=== PATIENT | male | born 1980 | race Caucasian/White ===

== ENCOUNTER 2016-06-11 15:00 | Inpatient (IN) | payer BC ==
[2016-06-11 17:17] VITALS: BMI 37.9
--- NOTE | 2016-06-11 20:10 | HP ---
COWS - Scale Resting Pulse: 1= [place] 81-100 Sweatin= Chills/Flushing Restless Observation: 3= Extraneous Movement Pupil Size: 0= Normal to Room Light Bone or Joint Aches: 2= Severe Diffuse Aches Runny Nose/ Eye Tearin= Runny Nose/Eyes GI Upset > 30mins: 3= Vomiting/Diarrhea Tremor Observation: 2= Slight Tremor Visible Yawning Observation: 0= None Anxiety or Irritability: 2=Irritable/Anxious Goose Flesh Skin: 0=Smooth Skin COWS Score: 16 Admission [facility] Chief Complaint: WITHDRAWAL SX Allergies/Adverse Reactions: Allergies Allergy/AdvReac Type Severity Reaction Status Date / Time No Known Allergies Allergy Verified 06/11/16 17:37 History of Present Illness: 35 YEARS OLD MALE WITH LONG HISTORY OF OPIATE NICOTINE MARIJUANA DEPENDENCE HAS HIV IS ADMITTED TO DETOX Exam Limitations: No Limitations - Ebola screening Have you traveled outside of the country in the last 21 days: No Have you had contact with anyone from an Ebola affected area: No Have you been sick,other than usual withdrawal symptoms: No Do you have a fever: No - Review of Systems Constitutional: Chills, Changes in sleep, Weight Stable EENT: reports: No Symptoms Reported Respiratory: reports: No Symptoms reported Cardiac: reports: No Symptoms Reported GI: reports: Diarrhea, Nausea, Poor Fluid Intake, Vomiting, Indigestion, Abdominal cramping : reports: No Symptoms Reported, Lesions Musculoskeletal: reports: Joint Pain, Muscle Pain, Neck Pain Integumentary: reports: Change in Color (RIGHT INNER ELBOW) Neuro: reports: Tremors Endocrine: reports: No Symptoms Reported Hematology: reports: No Symptoms Reported Psychiatric: reports: Judgement Intact, Mood/Affect Appropiate, Orientated x3 Other Systems: Reviewed and Negative Patient History - Patient Medical History Hx Anemia: No Hx Asthma: No Hx Chronic Obstructive Pulmonary Disease (COPD): No Hx Cancer: No Hx Cardiac Disorders: No Hx Congestive Heart Failure: No Hx Hypertension: No Hx Hypercholesterolemia: No Hx Pacemaker: No HX Cerebrovascular Accident: No Hx Seizures: No Hx Dementia: No Hx Diabetes: Yes (OWX=[id number]) Hx Gastrointestinal Disorders: No Hx Liver Disease: No Hx Genitourinary Disorders: No Hx Sexually Transmitted Disorders: No Hx Renal Disease (ESRD): No Hx Thyroid Disease: No Hx Human Immunodeficiency Virus (HIV): Yes Hx Hepatitis C: Yes Hx Depression: Yes Hx Suicide Attempt: No Hx Bipolar Disorder: No Hx Schizophrenia: No - Patient Surgical History Past Surgical History: No - PPD History Previous Implant?: Yes Documented Results: Negative w/o proof Implanted On Prior [facility] Admission?: No PPD to be Administered?: Yes - Smoking Cessation Smoking history: Current every day smoker Have you smoked in the past 12 months: No Aproximately how many cigarettes per day: 5 Cigars Per Day: 0 Hx Chewing Tobacco Use: No Initiated information on smoking cessation: Yes 'Breaking Loose' booklet given: 06/11/16 - Substance & Tx. History Hx Alcohol Use: No Hx Substance Use: Yes Substance Use Type: Marijuana, Opiates Hx Substance Use Treatment: Yes - Substances Abused Heroin Route: Injection Frequency: Daily Amount used: 10 bags Age of first use: 12 Date of Last Use: 06/11/16 Marijuana/Hashish Route: Smoking Frequency: Daily Amount used: 2 bags Age of first use: 12 Date of Last Use: 06/10/16 Family Disease History - Family Disease History Family Disease History: Heart Disease: Grandparent Admission Physical Exam S - Vital Signs Vital Signs: Vital Signs - 24 hr 06/11/16 17:16 Temperature 96.8 F L Pulse Rate 83 Respiratory 20 Rate Blood Pressure 120/86 - Physical General Appearance: Yes: Appropriately Dressed, Mild Distress, Obese, Tremorous , Irritable, Sweating, Anxious HEENTM: Yes: Hearing grossly Normal, Normal ENT Inspection, Normocephalic, Normal Voice Respiratory: Yes: Chest Non-Tender, Lungs Clear, Normal Breath Sounds, No Respiratory Distress, No Accessory Muscle Use Neck: Yes: Supple, Trachea in good position Breast: Yes: Breasts Symetrical Cardiology: Yes: Regular Rhythm, Regular Rate, S1, S2 Abdominal: Yes: Non Tender, Soft Genitourinary: Yes: Within Normal Limits Back: Yes: Normal Inspection Musculoskeletal: Yes: full range of Motion, Gait Steady, Back pain, Muscle Pain Extremities: Yes: Normal Range of Motion, Non-Tender, Tremors Neurological: Yes: Fully Oriented, Alert, Motor Strength 5/5, Normal Response, Depressed Affect Integumentary: Yes: Warm, Track [place] Lymphatic: Yes: Within Normal Limits - Diagnostic (1) Opioid dependence with withdrawal Current Visit: Yes Status: Acute (2) Cannabis dependence, uncomplicated Current Visit: Yes Status: Chronic (3) HIV (human immunodeficiency virus infection) Current Visit: Yes Status: Acute (4) Nicotine dependence Current Visit: Yes Status: Acute Qualifiers: Nicotine product type: cigarettes Substance use status: in withdrawal Qualified Code(s): F17.213 - Nicotine dependence, cigarettes, with withdrawal (5) Hepatitis C antibody test positive Current Visit: Yes Status: Resolved Comment: TREATED (6) GERD (gastroesophageal reflux disease) Current Visit: Yes Status: Acute Qualifiers: Esophagitis presence: without esophagitis Qualified Code(s): K21.9 - Gastro-esophageal reflux disease without esophagitis (7) Diabetes mellitus type II, controlled Current Visit: Yes Status: Acute Qualifiers: Diabetes mellitus complication status: without complication Diabetes mellitus adjunct faculty for medical terminology insulin use: without adjunct faculty for medical terminology use Qualified Code(s): E11.9 - Type 2 diabetes mellitus without complications Cleared for Admission [facility] - Detox or Rehab [facility] Level of Care: Medically Managed Detox Regimen/Protocol: Methadone S Breath Alcohol Content Breath Alcohol Content: 0 Urine Drug Screen - Results Urine Drug Screen Results: THC-Marijuana, OPI-Opiates
[2016-06-11] MEDS ORDERED: guaiFENesin/D-METHORPHAN HB 10 ML UNIT-DOSE CUPS PO PRN (20:13)
[2016-06-11] MEDS ORDERED: MAGNESIUM CITRATE 300 ML BOTTLE PO PRN (20:13)
[2016-06-11] MEDS ORDERED: P-EPHED 60MG/TRIPROLIDI 2.5MG TABLET PO PRN (20:13)
[2016-06-11] MEDS ORDERED: MAG HYDROX/AL HYDROX/SIMETH 30 ML UNIT-DOSE CUP PO PRN (20:13)
[2016-06-11] MEDS ORDERED: diphenhydrAMINE HCL 50 MG CAPSULE PO PRN (20:13)
[2016-06-11] MEDS ORDERED: ACETAMINOPHEN 325 MG TABLET (FP) PO PRN (20:13)
[2016-06-11] MEDS ORDERED: METHADONE HCL 10 MG TABLET (FOR DETOX USE ONLY) PO ONE ×2 (20:13→23:00)
[2016-06-11] MEDS ORDERED: NICOTINE POLACRILEX 2 MG GUM BC PRN (20:13)
[2016-06-11] MEDS ORDERED: IBUPROFEN 400 MG TABLET (FP) PO PRN (20:13)
[2016-06-11] MEDS ORDERED: MAGNESIUM HYDROX 2400MG/30ML ORAL SUSPENSION 30 ML CUP PO PRN (20:13)
[2016-06-11] MEDS ORDERED: LOPERAMIDE HCL 2 MG CAPSULE PO PRN (20:13)
[2016-06-11] MEDS ORDERED: MENTHOL/PHENOL 1 EACH UD MM PRN (20:13)
[2016-06-11] MEDS: diazePAM 5 MG TABLET PO PRN (22:03)
[2016-06-11] MEDS: RANITIDINE HCL 150 MG TABLET (FP) PO SCH (22:57)
[2016-06-11] MEDS: THIAMINE HCL 100 MG TABLET (FP) PO SCH (22:58)
[2016-06-12] MEDS: diazePAM 5 MG TABLET PO PRN ×3 (05:41→22:08)
[2016-06-12] MEDS: metFORMIN HCL 500 MG TABLET (FP) PO SCH ×2 (06:46→17:21)
--- NOTE | 2016-06-12 09:47 | PN ---
[facility] COWS - Scale Resting Pulse: 1= [place] 81-100 Sweatin=Flushed/Facial Moisture Restless Observation: 1= Difficult to Sit Still Pupil Size: 0= Normal to Room Light Bone or Joint Aches: 2= Severe Diffuse Aches Runny Nose/ Eye Tearin= Runny Nose/Eyes GI Upset > 30mins: 2= Nausea/Diarrhea Tremor Observation of Outstretched Hands: 2= Slight Tremor Visible Yawning Observation: 1= 1-2x During Session Anxiety or Irritability: 2=Irritable/Anxious Goose Flesh Skin: 0=Smooth Skin COWS Score: 15 [facility] Progress Note (SOAP) Subjective: Anxiety,tremors,sweating,interrupted sleep,restless,muscle aches. Objective: 06/12/16 09:45 Last Vital Signs Temp Pulse Resp BP Pulse Ox 96.9 F L 87 19 127/85 06/12/16 09:10 06/12/16 09:10 06/12/16 09:10 06/12/16 09:10 Laboratory Tests 06/11/16 06/12/16 17:58 05:40 POC Glucometer 182 103 labs noted Assessment: 06/12/16 09:46 Withdrawal sx. Plan: continue detox
[2016-06-12 09:59] LABS: MCH 30.3 pg (25.7-33.7); MCHC 33.5 g/dl (32.0-35.9); MEAN CELL VOLUME 90.3 fl (80-96); MEAN PLT VOLUME 10.2 fl (7.5-11.1); PLATELET COUNT 132 K/MM3 (134-434); RDW 13.4 % (11.9-15.9); WHITE BLOOD COUNT 5.2 K/mm3 (4.0-10.0)
[2016-06-12] MEDS ORDERED: PRENATAL VITAMINS W/ FOLIC ACID TABLET (FP) PO SCH (10:00)
[2016-06-12] MEDS ORDERED: PATIENT'S OWN MEDICATION (NON-FORMULARY) (Atazanavir Sulfate/Cobicistat [Evotaz 300 Mg-150 PO SCH (10:00)
[2016-06-12] MEDS ORDERED: PATIENT'S OWN MEDICATION (NON-FORMULARY) (Empagliflozin [Jardiance] 25 MG) PO SCH (10:00)
[2016-06-12] MEDS ORDERED: NICOTINE 14 MG/24 HOURS TOPICAL PATCH TD SCH (10:00)
[2016-06-12] MEDS ORDERED: EMTRICITABINE 200MG/TENOFOVIR 300MG PO SCH (10:00)
[2016-06-12] MEDS ORDERED: METHADONE HCL 10 MG TABLET (FOR DETOX USE ONLY) PO ONE (10:00)
[2016-06-12] MEDS: RANITIDINE HCL 150 MG TABLET (FP) PO SCH ×2 (10:14→22:08)
[2016-06-12 10:16] LABS: ALBUMIN 3.1 g/dl (3.4-5.0); ALK PHOS 73 U/L (45-117); ANION GAP 9 (8-16); BILIRUBIN,TOTAL 0.4 mg/dL (0.2-1.0); CALCIUM 8.1 mg/dL (8.5-10.1); CO2 26 mmol/L (21-32); CREATININE 0.8 mg/dL (0.7-1.3); GLUCOSE,RANDOM 99 mg/dL (74-106); SGOT/AST 26 U/L (15-37); SGPT/ALT 38 U/L (12-78); TOT PROT 8.2 g/dl (6.4-8.2)
[2016-06-12 14:40] LABS: URINE APPEARANCE CLEAR; URINE BILIRUBIN NEGATIVE (NEGATIVE); URINE BLOOD NEGATIVE (NEGATIVE); URINE COLOR YELLOW; URINE GLUCOSE (UA) NEGATIVE (NEGATIVE); URINE KETONE NEGATIVE (NEGATIVE); URINE NITRITE NEGATIVE (NEGATIVE); URINE PROTEIN NEGATIVE (NEGATIVE); URINE UROBILINOGEN 2.0 E.U/dl E.U./dl (0.2-1.0)
[2016-06-12 14:47] LABS: URINE LEUK ESTERASE TRACE (NEGATIVE)
[2016-06-12 14:52] LABS: CALCIUM OXALATE CRYSTALS RARE /hpf (NONE SEEN); URINE MUCUS RARE; URINE RBC 4 /hpf (0-3); URINE WBC 1 /hpf (3-5)
--- NOTE | 2016-06-12 16:29 | EKG ---
Test Reason : Blood Pressure : / mmHG Vent. Rate : 075 BPM Atrial Rate : 075 BPM P-R Int : 168 ms QRS Dur : 084 ms QT Int : 388 ms P-R-T Axes : 060 061 048 degrees QTc Int : 433 ms NORMAL SINUS RHYTHM MODERATE VOLTAGE CRITERIA FOR LVH, MAY BE NORMAL VARIANT ST ELEVATION, CONSIDER EARLY REPOLARIZATION BORDERLINE ECG NO PREVIOUS ECGS AVAILABLE Confirmed by BERNA CUADRA MD ([id number]) on 06/12/2016 4:29:21 PM Referred By: Amos Aguila Confirmed By:BERNA CUADRA MD
--- NOTE | 2016-06-12 18:07 | CONSULT ---
[facility] Psychiatric Consult - Data Date of interview: 06/12/16 Admission source: [facility] Identifying data: First admission to [facility] [place] for this 35 y/o male seeking detox treatment for heroin and cannabis dependence.Patient is ,a father of three,unemployed and supported on [employer] funds. Substance Abuse History: - Smoking Cessation. Smoking history: Current every day smoker. Have you smoked in the past 12 months: No. Aproximately how many cigarettes per day: 5. Cigars Per Day: 0. Hx Chewing Tobacco Use: No. Initiated information on smoking cessation: Yes. 'Breaking Loose' booklet given : 06/11/16. - Substance & Tx. History. Hx Alcohol Use: No. Hx Substance Use: Yes. Substance Use Type: Marijuana, Opiates. Hx Substance Use Treatment: Yes. - Substances Abused. Heroin. Route: Injection. Frequency: Daily. Amount used: 10 bags. Age of first use: 12. Date of Last Use: 06/11/16. Marijuana/Hashish. Route: Smoking. Frequency: Daily. Amount used: 2 bags. Age of first use: 12. Date of Last Use: 06/10/16. Confirmed y patient. Medical History: HIV infection,hepatitis C and diabetes mellitus. Psychiatric History: Patient denies.Mr wallace offers a remote history of suicide attempts (cutting). Physical/Sexual Abuse/Trauma History: Patient denies. Additional Comment: Urine Drug Screen Results: THC-Marijuana, OPI-Opiates.Noted. Mental Status Exam - Mental Status Exam Alert and Oriented to: Time, Place, Person Cognitive Function: Good Patient Appearance: Well Groomed (tattoos on forearms and arms) Mood: Hopeful, Euthymic Affect: Appropriate, Normal Range Patient Behavior: Fatigued, Appropriate, Cooperative Speech Pattern: Clear Voice Loudness: Normal Thought Process: Goal Oriented Thought Disorder: Not Present Hallucinations: Denies Suicidal Ideation: Denies Homicidal Ideation: Denies Insight/Judgement: Poor Sleep: Poorly, Difficulty falling asleep Appetite: Good Muscle strength/Tone: Normal Gait/Station: Normal Psychiatric Findings - Problem List ([place] 1, 2,3) (1) Opioid dependence with withdrawal Current Visit: Yes Status: Acute (2) Cannabis dependence, uncomplicated Current Visit: Yes Status: Acute (3) Nicotine dependence Current Visit: Yes Status: Acute Qualifiers: Nicotine product type: cigarettes Substance use status: in withdrawal Qualified Code(s): F17.213 - Nicotine dependence, cigarettes, with withdrawal (4) Diabetes mellitus type II, controlled Current Visit: Yes Status: Chronic Qualifiers: Diabetes mellitus complication status: without complication Diabetes mellitus termite control representative insulin use: without termite control representative use Qualified Code(s): E11.9 - Type 2 diabetes mellitus without complications (5) GERD (gastroesophageal reflux disease) Current Visit: Yes Status: Chronic Qualifiers: Esophagitis presence: without esophagitis Qualified Code(s): K21.9 - Gastro-esophageal reflux disease without esophagitis (6) HIV (human immunodeficiency virus infection) Current Visit: Yes Status: Chronic (7) Hepatitis C antibody test positive Current Visit: Yes Status: Resolved Comment: TREATED - Initial Treatment Plan Initial Treatment Plan: Psychoeducation.Detoxification.Observation.
[2016-06-12] MEDS ORDERED: ZOLPIDEM TARTRATE 10 MG TABLET (PARK CARE ONLY) PO PRN (18:44)
[2016-06-12] MEDS: THIAMINE HCL 100 MG TABLET (FP) PO SCH (22:08)
[2016-06-13] MEDS: diazePAM 5 MG TABLET PO PRN (05:10)
[2016-06-13] MEDS: metFORMIN HCL 500 MG TABLET (FP) PO SCH (07:18)
--- NOTE | 2016-06-13 09:31 | DS ---
[facility] Detox Discharge Summary Admission Date: 06/11/16 Discharge Date: 06/13/16 - History Present History: Cannabis Dependence (PT DECLINED TO CONTINUE WITH DETOX.), Opioid Dependence Additional Comments: PT DECLINED TO CONTINUE WITH DETOX STATING "I'M TAKING VALIUM HERE AND I'M LEAVING BECAUSE I HAVE VALIUMS AT HOME THAT I COULD TAKE". Pertinent Past History: HIV+ HEP C DM - Physical Exam Results Vital Signs: Vital Signs Temperature 98.3 F 06/13/16 06:25 Pulse Rate 77 06/13/16 06:25 Respiratory Rate 18 06/13/16 06:25 Blood Pressure 129/84 06/13/16 06:25 O2 Sat by Pulse Oximetry (%) Pertinent Admission Physical Exam Findings: WITHDRAWAL SX Laboratory Last Values WBC 5.2 K/mm3 (4.0-10.0) 06/12/16 07:00 RBC 4.26 M/mm3 (4.00-5.60) 06/12/16 07:00 Hgb 12.9 GM/dL (11.7-16.9) 06/12/16 07:00 Hct 38.5 % (35.4-49) 06/12/16 07:00 MCV 90.3 fl (80-96) 06/12/16 07:00 MCHC 33.5 g/dl (32.0-35.9) 06/12/16 07:00 RDW 13.4 % (11.9-15.9) 06/12/16 07:00 Plt Count 132 K/MM3 (134-434) L 06/12/16 07:00 MPV 10.2 fl (7.5-11.1) 06/12/16 07:00 Sodium 139 mmol/L (136-145) 06/12/16 07:00 Potassium 3.9 mmol/L (3.5-5.1) 06/12/16 07:00 Chloride 104 mmol/L (98-107) 06/12/16 07:00 Carbon Dioxide 26 mmol/L (21-32) 06/12/16 07:00 Anion Gap 9 (8-16) 06/12/16 07:00 BUN 12 mg/dL (7-18) 06/12/16 07:00 Creatinine 0.8 mg/dL (0.7-1.3) 06/12/16 07:00 Creat Clearance w eGFR > 60 (>60) 06/12/16 07:00 POC Glucometer 90 UNITS (()) 06/13/16 05:09 Random Glucose 99 mg/dL (74-106) 06/12/16 07:00 Calcium 8.1 mg/dL (8.5-10.1) L 06/12/16 07:00 Total Bilirubin 0.4 mg/dL (0.2-1.0) 06/12/16 07:00 AST 26 U/L (15-37) 06/12/16 07:00 ALT 38 U/L (12-78) 06/12/16 07:00 Alkaline Phosphatase 73 U/L (45-117) 06/12/16 07:00 Total Protein 8.2 g/dl (6.4-8.2) 06/12/16 07:00 Albumin 3.1 g/dl (3.4-5.0) L 06/12/16 07:00 Urine Color Yellow 06/12/16 09:50 Urine Appearance Clear 06/12/16 09:50 Urine pH 6.0 (5.0-8.0) 06/12/16 09:50 Ur Specific [place] 1.026 (1.001-1.035) 06/12/16 09:50 Urine Protein Negative (NEGATIVE) 06/12/16 09:50 Urine Glucose (UA) Negative (NEGATIVE) 06/12/16 09:50 Urine Ketones Negative (NEGATIVE) 06/12/16 09:50 Urine Blood Negative (NEGATIVE) 06/12/16 09:50 Urine Nitrite Negative (NEGATIVE) 06/12/16 09:50 Urine Bilirubin Negative (NEGATIVE) 06/12/16 09:50 Urine Urobilinogen 2.0 e.u/dl E.U./dl (0.2-1.0) 06/12/16 09:50 Ur Leukocyte Esterase Trace (NEGATIVE) H 06/12/16 09:50 Urine RBC 4 /hpf (0-3) 06/12/16 09:50 Urine WBC 1 /hpf (3-5) 06/12/16 09:50 Ur Epithelial Cells Rare /hpf (FEW) 06/12/16 09:50 Calcium Oxalate Crystal Rare /hpf (NONE SEEN) 06/12/16 09:50 Urine Mucus Rare 06/12/16 09:50 RPR Titer Nonreactive (NONREACTIVE) 06/12/16 07:00 - Medication Discharge Medications: Ambulatory Orders Atazanavir Sulfate/Cobicistat [Evotaz 300 mg-150 mg Tablet] 1 tab PO DAILY 06/11 Empagliflozin [Jardiance] 25 mg PO DAILY 06/11/16 Emtricitabine/Tenofovir (Tdf) [Truvada 200 mg-300 mg Tablet] 1 tab PO DAILY 07/23 Metformin HCl [Metformin HCl ER] 1,000 mg PO BID 06/11/16 - AMA Did Patient Leave Against Medical Advice: Yes (AMA)
[2016-06-13 09:58] VITALS: BP 125/82; PULSE 79; TEMP 99.1
[2016-06-13] MEDS ORDERED: METHADONE HCL 5 MG TABLET (FOR DETOX USE ONLY) PO ONE (10:00)
[2016-06-14] MEDS ORDERED: METHADONE HCL 5 MG TABLET (FOR DETOX USE ONLY) PO ONE (10:00)
[2016-06-15] MEDS ORDERED: METHADONE HCL 10 MG TABLET (FOR DETOX USE ONLY) PO ONE (10:00)
[2016-06-16] MEDS ORDERED: METHADONE HCL 5 MG TABLET (FOR DETOX USE ONLY) PO ONE (06:00)
== END 2016-06-13 09:52 | disposition left against medical advice (07) | DRG 770 ==
LOC: YASAS 15:00 → Y3N 18:47
PROVIDERS: ADMIT Internal Medicine; ATTEND Internal Medicine
PROC: HZ2ZZZZ Detoxification Services for Substance Abuse Treatment (ICD-10-PCS; principal; 2016-06-13)
DX: F11.23 Opioid dependence with withdrawal (principal); F12.20 Cannabis dependence, uncomplicated; F17.210 Nicotine dependence, cigarettes, uncomplicated; E11.9 Type 2 diabetes mellitus without complications; K21.9 Gastro-esophageal reflux disease without esophagitis; B18.2 Chronic viral hepatitis C; Z21 Asymptomatic human immunodeficiency virus [HIV] infection status
CPT/HCPCS: 36415; 80053; 81003; 81015; 85027; 86593; 93005; 93010